=== PATIENT | male | born 1980 | race Two or more races ===

== ENCOUNTER 2017-09-24 07:20 | Observation (INO) | payer OTHER ==
[~2017-09-24] VITALS: Ht 177.8 cm; Wt 98.4 kg
[2017-09-24 07:57] LABS: BASO % 1 % (0-3); EOS # 0.1 x10^3/uL (0.0-0.7); EOS % 1 % (0-3); HEMATOCRIT 44.4 % (39.0-53.0); HEMOGLOBIN 15.3 g/dL (13.0-17.5); LYMPH # 1.6 x10^3/uL (1.0-4.8); LYMPH % 30 % (24-48); MEAN CORPUSCULAR HEMOGLOBIN 31 pg (25-35); MEAN CORPUSCULAR HGB CONC 34 g/dL (31-37); MEAN CORPUSCULAR VOLUME 90 fL (79-100); MONO # 0.6 x10^3/uL (0.0-1.1); MONO % 12 % (0-9); NEUT % 56 % (31-73); PLATELET COUNT 218 x10^3/uL (140-400); RED BLOOD COUNT 4.96 x10^6/uL (4.30-5.70); RED CELL DISTRIBUTION WIDTH 12.6 % (11.5-14.5); WHITE BLOOD COUNT 5.4 x10^3/uL (4.0-11.0)
[2017-09-24] MEDS ORDERED: ASPIRIN 81 MG TAB.CHEW PO ONE (08:00)
--- NOTE | 2017-09-24 08:07 | EKG ---
[address] [address] Test Date: 2017-09-24 Test Time: 07:28:40 Pat Name: CHARI KERR Department: Room: Gender: M Criminology Professor: ALESSIA : 1980 Requested By: SHARYN JORDAN Order Number: [id number] Reading MD: Kunal Ortiz MD Measurements Intervals [place] Rate: 73 P: 27 VA: 142 QRS: 102 QRSD: 96 T: -2 QT: 380 QTc: 422 Interpretive Statements SR LIMB LEAD REVERSAL Electronically Signed On 09-24-2017 13:24:12 SYSTEMS DEVELOPMENT MANAGER by Kunal Ortiz MD
[2017-09-24 08:15] LABS: ALBUMIN 4.3 g/dL (3.4-5.0); GFR 83.2; TOTAL BILIRUBIN 0.8 mg/dL (0.2-1.0); TOTAL PROTEIN 8.4 g/dL (6.4-8.2)
--- NOTE | 2017-09-24 08:20 | PHYS DOC ---
Past History Past Medical History: Seizure Past Surgical History: Other Alcohol Use: Sober Additional Alcohol Information: sober 4 years Drug Use: None Adult General Chief Complaint Chief Complaint: CHEST PAIN [facility] HPI 37-year-old male patient complaining of 2 episodes of non-exertional substernal chest pain since 6:15 this morning a sharp pain and associated with shortness of breath and dizziness and near syncope that last about couple seconds and repeated twice. Patient denies palpitation and nausea and focal neurodeficit. Patient states he had a couple episodes of remote chest pain without evaluation. Patient rated his pain about 7/10 and denies any chest pain at that time. Patient does not have any medical problems and denies smoking and using drugs or drinking alcohol and recent immobilization. Patient has positive family history for coronary artery disease. Review of Systems Review of Systems Constitutional: Denies fever or chills [] Eyes: Denies change in visual acuity, redness, or eye pain [] HENT: Denies nasal congestion or sore throat [] Respiratory: Denies cough, reports shortness of breath [] Cardiovascular: No additional information not addressed in HPI [] GI: Denies abdominal pain, nausea, vomiting, bloody stools or diarrhea [] : Denies dysuria or hematuria [] Musculoskeletal: Denies back pain or joint pain [] Integument: Denies rash or skin lesions [] Neurologic: Denies headache, focal weakness or sensory changes , reports dizziness and near syncope[] Endocrine: Denies polyuria or polydipsia [] All other systems were reviewed and found to be within normal limits, except as documented in this note. Current Medications Current Medications Current Medications Medications (Trade) Dose Ordered Sig/[facility] Start Time Stop Time Status Last Admin Dose Admin Aspirin (Children'S Aspirin) 324 mg 1X ONCE 09/24/17 08:00 09/24/17 08:05 DC 09/24/17 07:54 324 MG Allergies Allergies Allergies Coded Allergies Type Severity Reaction Last Updated Verified No Known Drug Allergies 09/24/17 No Physical Exam Physical Exam Constitutional: Well developed, well nourished, no acute distress, non-toxic appearance, anxious. [] HENT: Normocephalic, atraumatic, bilateral external ears normal, oropharynx moist, no oral exudates, nose normal. [] Eyes: PERRLA, EOMI, conjunctiva normal, no discharge. [] Neck: Normal range of motion, no tenderness, supple, no stridor. [] Cardiovascular:Heart rate regular rhythm, no murmur [] Lungs & Thorax: Bilateral breath sounds clear to auscultation [] Abdomen: Bowel sounds normal, soft, no tenderness, no masses, no pulsatile masses. [] Skin: Warm, dry, no erythema, no rash. [] Back: No tenderness, no CVA tenderness. [] Extremities: No tenderness, no cyanosis, no clubbing, ROM intact, no edema. [] Neurologic: Alert and oriented X 3, normal motor function, normal sensory function, no focal deficits noted. [] Psychologic: Affect normal, judgement normal, mood normal. [] Current Patient Data Vital Signs Vital Signs Date Time Temp Pulse Resp B/P (MAP) Pulse Ox O2 Delivery O2 Flow Rate FiO2 09/24/17 07:20 97.6 68 18 99 Room Air Lab Results Laboratory Tests Test 09/24/17 07:35 White Blood Count 5.4 x10^3/uL (4.0-11.0) Red Blood Count 4.96 x10^6/uL (4.30-5.70) Hemoglobin 15.3 g/dL (13.0-17.5) Hematocrit 44.4 % (39.0-53.0) Mean Corpuscular Volume 90 fL (79-100) Mean Corpuscular Hemoglobin 31 pg (25-35) Mean Corpuscular Hemoglobin Concent 34 g/dL (31-37) Red Cell Distribution Width 12.6 % (11.5-14.5) Platelet Count 218 x10^3/uL (140-400) Neutrophils (%) (Auto) 56 % (31-73) Lymphocytes (%) (Auto) 30 % (24-48) Monocytes (%) (Auto) 12 % (0-9) H Eosinophils (%) (Auto) 1 % (0-3) Basophils (%) (Auto) 1 % (0-3) Neutrophils # (Auto) 3.0 x10^3uL (1.8-7.7) Lymphocytes # (Auto) 1.6 x10^3/uL (1.0-4.8) Monocytes # (Auto) 0.6 x10^3/uL (0.0-1.1) Eosinophils # (Auto) 0.1 x10^3/uL (0.0-0.7) Basophils # (Auto) 0.0 x10^3/uL (0.0-0.2) Troponin I Quantitative < 0.017 ng/mL (0-0.055) EKG EKG [EKG interpreted by me. EKG at 0 728 showed normal sinus rhythm at rate of 73, right fourth axis, poor R-wave progress in anteroseptal leads] Radiology/Procedures Radiology/Procedures [Chest x-ray was not reported acute abnormality Course & Med Decision Making Course & Med Decision Making Pertinent Labs and Imaging studies reviewed. (See chart for details) Evaluation of patient in ER showed 37-year-old male patient with 2 episodes of chest pain for few seconds this morning. Patient had unremarkable physical exam. Labs showed elevation of the uterine and CPK and CK-MB. Patient stated he lost about 5 pounds for the last 1 week and increased his level of activity and decreased his liquid intake. Plan to start IV fluid and admit patient to hospitalist with diagnosis of acute chest pain and dehydration and rhabdomyolysis. Dr. Ren consulted and accepted admission at 0 827. Dragon Disclaimer Dragon Disclaimer This electronic medical record was generated, in whole or in part, using a voice recognition dictation system. Departure Departure: Impression: Primary Impression: Acute chest pain Additional Impressions: Dehydration Rhabdomyolysis Disposition: ADMITTED INPATIENT (At 0827) Admitting Physician: Diandra Ren Condition: IMPROVED Referrals: DIANDRA BAEZ MD (PCP) Problem Qualifiers SHARYN JORDAN MD Sep 24, 2017 08:20
--- NOTE | 2017-09-24 08:40 | RAD ---
PA and lateral chest radiographs 09/24/2017. Clinical History: Chest pain. PA and lateral digital radiographs of the chest were obtained. No previous studies are available for comparison. The cardiac and mediastinal silhouettes are within normal limits in size and configuration. No pulmonary infiltrate is seen. No pleural effusion or pneumothorax is noted. The osseous structures are grossly intact. Impression: No radiographic evidence of active cardiopulmonary disease.
[2017-09-24] MEDS ORDERED: IV NORMAL SALINE 1,000ML 1,000 ML IV ONE (09:00)
--- NOTE | 2017-09-24 11:00 | NUR ---
ADMIT: Pt admitted to unit from ER per Dr. Ren, transported via EMS and gurney, IV fluids continued, pt dx of chest pain and dehydration.
[2017-09-24 11:01] VITALS: BP 118/70
--- NOTE | 2017-09-24 11:22 | NUR ---
Called Dr. Soler, [employer] ax developer office, filed consult.
--- NOTE | 2017-09-24 13:47 | CONS ---
DATE OF CONSULTATION: 09/24/2017 REASON FOR CONSULTATION: Chest pain. HISTORY OF PRESENT ILLNESS: The patient is a 37-year-old male who presents to the hospital in the setting of chest discomfort. He reports that he has been in his usual state of health and approximately 6 this morning had an episode of sharp pain that lasted about 3 seconds without any recurrent episodes. Did not have any significant chest pain otherwise. No syncope or palpitations. He had some mild lightheadedness. He has had 2 other episodes in the past of similar nature. At baseline, the patient is a very functional person. He is able to run 4 miles without any significant limitations. Most recently, he has been under strict extreme diet of essentially fasting for approximately 18 hours and drinking mostly protein shakes. PAST MEDICAL HISTORY: No significant past medical history. SOCIAL HISTORY: He is . He does not smoke. He denies any alcohol, tobacco, or illicit drug use. He is in the officer in the school right now. FAMILY HISTORY: Notable for coronary artery disease in his father. No significant early atherosclerotic coronary artery disease. ALLERGIES: No known drug allergies. CURRENT CARDIOVASCULAR MEDICATIONS: None. REVIEW OF SYSTEMS: Negative for 10 out of 14 systems reviewed, unless otherwise mentioned above in HPI. PHYSICAL EXAMINATION: VITAL SIGNS: Afebrile, heart rate 66, respirations 20, blood pressure 118/70, and 98% on room air. GENERAL: He is alert and oriented, in no acute distress. HEAD AND NECK: Unremarkable. CARDIAC: Regular rate and rhythm without any murmurs, rubs, or gallops. Neck veins are flat. LUNGS: Clear to auscultation bilaterally. ABDOMEN: Soft, nontender, nondistended. EXTREMITIES: No clubbing, cyanosis, or edema. 2+ radial and dorsalis pedis pulses. NEUROLOGIC: No focal deficits. MUSCULOSKELETAL: No trauma. DIAGNOSTIC STUDIES: Initial cardiac enzymes negative x 1. D-dimer is negative x 1. Creatinine 1.0. CK and CK-MB are minimally elevated, likely in the setting of dehydration and significant exercise since 09/17/2017. Chest x-ray is unremarkable. EKG is unremarkable. IMPRESSION: Noncardiac chest pain: Given the fact that he is able to run 4 miles and he has a negative D-dimer and negative troponin at this time, there is no obvious acute pathology of concern. RECOMMENDATIONS: The patient was advised to refrain from his extreme dietary restrictions that he has been putting himself on. Supportive care from a cardiac standpoint. Okay to discharge if the next troponin is negative. Thank you for this consultation. JULIANNA CASTILLO MD DR: LIVIER/royer JOB#: [id number] / [id number] TAMMY
[2017-09-24 14:25] VITALS: BP 115/74
--- NOTE | 2017-09-24 15:28 | NUR ---
Pt DC [address] Ortiz and Dr[address] Ren, pt ambulated to exit with , pt given Dr. cast to skip one day of schooling for proper recovery, pt encouraged to drink fluids.
--- NOTE | 2017-09-24 21:25 | SSS ---
ADMIT DATE: 09/24/2017 Stay was greater than 8 hours and less than 24. Care was given by Dr. Mercado. RETAIL MANAGER IN TRAINING: Dr. Ortiz. DISCHARGE DIAGNOSES: 1. Chest pain, myocardial infarction ruled out, due to dehydration. 2. Rhabdomyolysis secondary to extreme calorie deficient diet. 3. Dehydration. 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 His weight appointment was coming up this week, and on this 09/18/2017, he started a very restrictive diet, almost all protein, fasting for 18 hours, not drinking any fluids and then started an aggressive exercise and running program. He states he has lost 22 pounds since 09/17/2017. He presented this morning with fleeting chest pain, central, also dizzy. He had drunk a lot of black coffee. No radiation, no diaphoresis, just dizzy. PAST MEDICAL HISTORY: Negative. PAST SURGICAL HISTORY: Hernia repair. FAMILY HISTORY: Father did at 56 of some type of cardiac event. HABITS: Does not smoke, quit drinking 4 years ago. 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 REVIEW OF SYSTEMS: As per HPI. OBJECTIVES: VITAL SIGNS: Blood pressure 118/70, pulse 66, temperature 98, respirations 20, pulse ox 98% on room air. Height 70 inches, weight 217 pounds. GENERAL: A 37-year-old in no acute distress. HEENT: Her eyes were clear. Tongue was moist. Throat was clear in the posterior pharynx. NECK: Supple, without adenopathy. LUNGS: Clear in all finn. CARDIOVASCULAR: Regular rhythm and rate without tachycardia. ABDOMEN: Soft. Bowel sounds are positive. Nontender. EXTREMITIES: Without edema. MUSCULOSKELETAL: Slightly sore muscles in his lower leg, particularly on the [place]onald area. LABORATORY DATA: CPK is 925. Troponins negative x 2. BUN was 30, creatinine 1.0. D-dimer negative. ASSESSMENT: 1. Mild rhabdomyolysis. 2. Chest pain, myocardial infarction ruled out. 3. Severe rapid weight loss secondary to severe calorie deficient diet. PLAN: The patient received 2 units of IV fluids. He was seen by Dr. Ortiz. PA has been ruled out. He was strongly cautioned not to continue with this program of fasting and extreme exercise. Mainly walk for the next week or so. Note given for work for tomorrow. He is to drink fluids liberally. DIANDRA MERCADO DO DR: LAURA/royer JOB#: [id number] / [id number]
== END 2017-09-24 15:00 | disposition home or self-care (01) ==
LOC: ER 07:20 → 1 SOUTH 08:49
PROVIDERS: ADMIT Family Medicine; ATTEND Family Medicine
DX: R07.89 Other chest pain (principal); M62.82 Rhabdomyolysis; E86.0 Dehydration; Z82.49 Family history of ischemic heart disease and other diseases of the circulatory system
CPT/HCPCS: 36415; 71046; 80053; 82553; 83735; 84484; 85025; 85379; 93005; 96360; 99285; G0378; G0379; J7030